=== PATIENT | male | born 1990 | race African-American/Black ===

== ENCOUNTER 2018-10-30 02:55 | Inpatient (IN) | payer OTHER ==
[2018-10-30] MEDS ORDERED: Morphine 4 MG/ML VIAL ONE (03:51)
[2018-10-30] MEDS ORDERED: Ketorolac Tromethamine 30 MG/ML VIAL ONE (03:51)
[2018-10-30 04:03] LABS: ALT (SGPT) 20 U/L (8-55); AST (SGOT) 10 U/L (5-34); Albumin 3.8 g/dL (3.5-5.0); Alkaline Phosphatase 61 U/L (40-150); Anion Gap 13 mmol/L (10-20); BUN (Urea Nitrogen) 11 mg/dL (8.9-20.6); Bilirubin, Total 1.5 mg/dL (0.2-1.2); CRP (Inflammatory) 27.03 mg/dL (= or < 0.5); Calc. Creatinine Clearance 0 mL/min (70-130); Calcium 9.2 mg/dL (7.8-10.44); Carbon Dioxide 26 mmol/L (22-29); Chloride 103 mmol/L (98-107); Estimated GFR-MDRD Greater than 90; Globulin 3.5 g/dL (2.4-3.5); Glucose 112 mg/dL (70-105); Potassium 3.7 mmol/L (3.5-5.1); Protein, Total 7.3 g/dL (6.0-8.3); Sodium 138 mmol/L (136-145)
[2018-10-30 04:13] LABS: Band 15 % (5-11); Hemoglobin 14.4 g/dL (14.0-18.0); Lymphocytes 8 % (21-51); MDiff Complete? YES; Mean Corpuscular HGB CONC 34.7 g/dL (32.0-36.0); Mean Corpuscular Hemoglobin 30.6 pg (27.0-31.0); Mean Corpuscular Volume 88.1 fL (78.0-98.0); Mean Platelet Volume 6.7 fL (7.4-10.4); Monocytes 12 % (0-10); Neutrophil 65 % (42-75); Platelet Count 282 thou/uL (130-400); RBC Distribution Width 11.2 % (11.5-14.5); White Blood Cell (WBC) Count 13.4 thou/uL (4.8-10.8)
[2018-10-30] MEDS ORDERED: Cefepime 2 GM in Sodium Chloride 0.9% 100 ML IVPB SCH (04:15)
[2018-10-30 05:28] LABS: Bilirubin Small (Negative); Blood, Urine Negative (Negative); Clarity CLEAR (Clear); Glucose, Urine (Dipstick) Negative (Negative); Leukocyte Negative (Negative); Nitrite Negative (Negative); Protein, Urine (Dipstick) Trace mg/dL (Neg-Trace)
[2018-10-30 05:32] LABS: Specific Gravity, Urine 1.053 (1.002-1.036)
[2018-10-30 06:14] VITALS: BMI 31.1
[2018-10-30] MEDS ORDERED: Ondansetron ODT 4 MG TAB PO PRN ×2 (07:08→07:55)
[2018-10-30] MEDS ORDERED: Ondansetron PF 4 MG/2 ML Vial IVP PRN ×2 (07:08→07:55)
[2018-10-30] MEDS ORDERED: Morphine 4 MG/ML VIAL SLOW IVP PRN (07:08)
[2018-10-30] MEDS ORDERED: HYDROcodone/Acetaminophen 5/325 mg Tablet PO PRN ×2 (07:09)
[2018-10-30] MEDS ORDERED: Sodium Chloride 0.45% 1,000 ML IV SCH (07:15)
[2018-10-30] MEDS ORDERED: Loratadine 10 MG TAB PO PRN (07:55)
[2018-10-30] MEDS ORDERED: Sodium Chloride 0.65% Nasal 44 ML BOT EA NARE PRN (07:55)
[2018-10-30] MEDS ORDERED: Bisacodyl 10 MG SUPP PR PRN (07:55)
[2018-10-30] MEDS ORDERED: Cepastat Lozenges 1 LOZ PO PRN (07:55)
[2018-10-30] MEDS ORDERED: Zolpidem Tartrate 5 MG TAB PO PRN (07:55)
[2018-10-30] MEDS ORDERED: Diabetic Tussin 200 MG/10 ML UDCUP PO PRN (07:55)
[2018-10-30] MEDS ORDERED: Calcium Carbonate 500 MG ChewTAB PO PRN (07:55)
[2018-10-30] MEDS ORDERED: hydrALAZINE 20 MG/ML VIAL SLOW IVP PRN (07:55)
[2018-10-30] MEDS ORDERED: Loperamide HCl 2 MG CAP PO PRN (07:55)
[2018-10-30] MEDS ORDERED: Artificial Tears 18 DROP/0.9 ML EA EYE PRN (07:55)
[2018-10-30] MEDS ORDERED: Eucerin (Mineral Oil/Petrolatum,White) 30 gm Jar TOP PRN (07:55)
[2018-10-30] MEDS ORDERED: Guaifenesin DM 100-10/5 ML UDCUP PO PRN (07:55)
[2018-10-30] MEDS: Sodium Chloride 0.9% 1,000 ML IV SCH ×2 (09:12→17:15)
[2018-10-30] MEDS: Cefepime 2 GM in Sodium Chloride 0.9% 100 ML IVPB SCH ×2 (09:59→20:26)
[2018-10-30] MEDS: Enoxaparin Sodium 40 MG/0.4 ML SYRINGE SC SCH (10:01)
[2018-10-30] MEDS: Famotidine 20 MG TAB PO SCH ×2 (10:01→20:26)
--- NOTE | 2018-10-30 11:41 | HP ---
PRIMARY CARE PHYSICIAN: [facility] Call admission. REASON FOR ADMISSION: Scrotal cellulitis. HISTORY OF PRESENT ILLNESS: A 28-year-old -[place] male with no significant medical history, who is [place], who was initially evaluated at [facility] for scrotal swelling and pain. The patient reports that for last 1 week he is experiencing increasing scrotal erythema, swelling, and tenderness. He was also having on and off fever at senior care. He was given oral antibiotic therapy without any improvement. The patient was feeling that his scrotal swelling and tenderness was getting worse. His scrotal was getting more tender when he was resting with keeping elevated his pain was relatively less. He denies any trauma. He denies any nausea, vomiting, or diarrhea. He denies any abdominal pain. He denies any UTI symptoms. REVIEW OF SYSTEMS: CONSTITUTIONAL: Negative for weight loss or gain, ability to conduct usual activities. SKIN: Negative for rash, itching. EYES: Negative for double vision, pain. ENT/MOUTH: Negative for nose bleeding, neck stiffness, pain, tenderness. CARDIOVASCULAR: Negative for palpitations, dyspnea on exertion, orthopnea. RESPIRATORY: Negative for shortness of breath, wheezing, cough, hemoptysis, fever or night sweats. GASTROINTESTINAL: Negative for poor appetite, abdominal pain, heartburn, nausea, vomiting, constipation, or diarrhea. GENITOURINARY: Negative for urgency, frequency, dysuria, nocturia. MUSCULOSKELETAL: Negative for pain, swelling. NEUROLOGIC/PSYCHIATRIC: Negative for anxiety, depression. ALLERGY/IMMUNOLOGIC: Negative for skin rash, bleeding tendency. See my HPI for pertinent positives and negatives. All other review of systems reviewed and negative except as mentioned in HPI. ALLERGIES: DEMEROL AND PENICILLIN. CURRENT HOME MEDICATIONS: The patient is not taking any prescribed or non-prescribed medication. PAST MEDICAL HISTORY: Reviewed and negative. PAST SURGICAL HISTORY: Reviewed and negative. PAST PSYCHIATRIC HISTORY: Reviewed and negative. SOCIAL HISTORY: The patient is [place]. No history of tobacco, alcohol, or illicit drug abuse. FAMILY HISTORY: No family history of premature coronary artery disease, stroke, or cancer. EMERGENCY ROOM COURSE: The patient is given cefepime, morphine 4 mg, and Toradol 30 mg. PHYSICAL EXAMINATION: VITAL SIGNS: On arrival, blood pressure 132/80, pulse 101, respiratory rate 18, temperature 100, and saturation 97% on room air. Weight 110.2 kg. GENERAL: The patient is currently alert and awake. No obvious acute distress. HEENT: Head; normocephalic and atraumatic. Eyes; pupils are round and reactive to light. Extraocular muscle intact. ENT, oropharynx within normal limits. Moist mucous membranes. No oral lesion. No pharyngeal erythema. No exudate. NECK: Supple. No JVD. No thyromegaly. No carotid bruit. No jugular venous distention. LUNGS: Clear to auscultation without any rhonchi or rales. CARDIAC: S1 and S2 regular. No murmur. No gallop. No rub. ABDOMEN: Soft. Bowel sounds present. Nontender. Nondistended. No organomegaly. No mass. No suprapubic tenderness. BACK: Unremarkable. No CVA tenderness. EXTREMITIES: Upper extremities; passive movement of all joints are normal. Lower extremity, no edema, good distal pulsation. SKIN: Other than scrotal cellulitis, the patient does not have any rash. PSYCHIATRIC: Normal affect. GENITALIA: The patient's testicular is swollen, especially status scrotal cellulitis with significant tenderness. No gas. No crepitus. No inguinal lymph node palpable. NEUROLOGIC: Nonfocal examination. SIGNIFICANT LABORATORY DATA: CBC; WBC 13.4, hemoglobin 14.4, platelet 282 with bandemia. BMP; sodium 138, potassium 3.7, chloride 103, carbon dioxide 26, anion gap 13, BUN 11, creatinine 0.85, glucose 112, and calcium 9.2. LFT; bilirubin 1.5, AST 10, ALT 20, alkaline phosphatase 61, albumin 3.8. CRP is 27.03. Lactic acid 0.7. Urinalysis unremarkable. ASSESSMENT: 1. Sepsis due to scrotal cellulitis. 2. Cellulitis of scrotum, failure of outpatient therapy. 3. Obesity with BMI 31. PLAN: Admission to medical floor. Urology consultation. Start broad-spectrum antibiotic therapy with cefepime 2 g IV q.12 hourly and vancomycin as per pharmacy adjusted dose. Continue IV fluid, pain control with morphine p.r.n. basis and/or ibuprofen p.r.n. basis. Follow up on culture result. DVT prophylaxis with Lovenox 40 mg subcu daily, GI prophylaxis with Pepcid 20 mg p.o. b.i.d. CODE STATUS: The patient is full code. The patient does not have any surrogate decision maker. DISPOSITION PLAN: Based on clinical course, we are expecting the patient to stay in hospital for more than 2 midnights. Plan of care discussed with the patient in detail. Job ID: [id number]
[2018-10-30] MEDS: HYDROcodone/Acetaminophen 5/325 mg Tablet PO PRN ×2 (16:04→20:26)
--- NOTE | 2018-10-30 16:11 | ULT ---
ULTRASOUND TESTICULAR: Date: 10/30/18 HISTORY: Left-sided scrotal swelling and pain. COMPARISON: None. TECHNIQUE: Real-time Alonzo scale with color Doppler and spectral analysis of the testicles was performed. FINDINGS: Right testicle measures 4.6 x 3.4 x 2.4 cm. Left testicle measures 4.6 x 3.1 x 2.6 cm. The vascular f low of the testicles is normal and symmetric. No testicular mass. The left epididymis is hyperemic. There is a complex collection in the right hemiscrotum. IMPRESSION: 1. Concern for possible phlegmonous material or abscess within the right hemiscrotal soft tissues. 2. Hyperemia of the left epididymis suggesting epididymitis. 3. Normal vascularity to both testicles. POS: BILL
[2018-10-30] MEDS: Morphine 4 MG/ML VIAL SLOW IVP PRN ×2 (17:08→22:06)
--- NOTE | 2018-10-30 18:39 | CON ---
DATE OF CONSULTATION: 10/30/2018 HISTORY OF PRESENT ILLNESS: This is a 28-year-old male, whom I was asked to see today by the hospitalist group because of scrotal cellulitis. Apparently, this started 3 or 4 days ago. He has been incarcerated. He had no trauma to it that he knows. He has never had it before. He has had swelling and pain on the right side. It got worse. He may have had a fever yesterday. It sounds like he had an ultrasound done at [place] yesterday, but we do not have any records of that. He is on vancomycin and cefepime currently. His white count when he came in was slightly elevated at 13.4. His creatinine was normal. Urinalysis was negative. He has not been having any dysuria, discharge, or difficulty with urination. Vital signs; since he has been here, he has been afebrile with stable vital signs. He has no significant medical or surgical history. He has some allergies to penicillin and Demerol. His exam; penis is without lesions. The scrotum on the right side is enlarged, tender. There is some erythema, although not as much as was described. This may already be improving. He has some area of scrotal wall on the right side that is somewhat shiny and feels to be fluctuant underneath it, so he probably does have a scrotal wall abscess, too tender to really tell about the testicle. IMPRESSION: Scrotal cellulitis with probably a scrotal wall abscess. We will plan on getting a scrotal ultrasound done today. He does not appear toxic today. He has just started antibiotics. We will get those going. Probably, will need to be drained. Most likely making him n.p.o. after midnight and draining this tomorrow morning in the OR unless he changes today or unless the ultrasound shows something more ominous. Job ID: [id number]
[2018-10-31] MEDS: HYDROcodone/Acetaminophen 5/325 mg Tablet PO PRN ×4 (00:25→21:01)
[2018-10-31] MEDS: Morphine 4 MG/ML VIAL SLOW IVP PRN ×5 (01:34→15:48)
[2018-10-31] MEDS: Sodium Chloride 0.9% 1,000 ML IV SCH ×3 (05:35→21:02)
[2018-10-31] MEDS ORDERED: Promethazine HCl 25 MG/ML VIAL SLOW IVP PRN (07:46)
[2018-10-31] MEDS ORDERED: Promethazine HCl 25 MG/ML VIAL IM PRN (07:46)
[2018-10-31] MEDS ORDERED: Ondansetron HCl/PF 4 MG/2 ML Vial IVP PRN (07:46)
[2018-10-31] MEDS ORDERED: Fentanyl 100 MCG/2 ML VIAL ONE ×3 (08:36→10:16)
[2018-10-31] MEDS ORDERED: Famotidine/PF 20 mg/2ml Vial ONE (09:01)
[2018-10-31] MEDS ORDERED: PROPOFOL 200 MG/20 ML VIAL ONE (09:25)
[2018-10-31] MEDS ORDERED: Ketorolac Tromethamine 30 MG/ML VIAL ONE (09:25)
[2018-10-31] MEDS ORDERED: Lidocaine 1% PF 5 ML VIAL ONE (09:25)
[2018-10-31] MEDS ORDERED: Ondansetron PF 4 MG/2 ML Vial ONE (09:25)
[2018-10-31] MEDS ORDERED: Dexamethasone 20 MG/5 ML VIAL ONE (09:25)
[2018-10-31] MEDS: Cefepime 2 GM in Sodium Chloride 0.9% 100 ML IVPB SCH ×2 (10:01→21:00)
[2018-10-31] MEDS: Enoxaparin Sodium 40 MG/0.4 ML SYRINGE SC SCH ×2 (10:02→11:29)
[2018-10-31] MEDS: Famotidine 20 MG TAB PO SCH ×3 (10:02→21:00)
--- NOTE | 2018-10-31 11:12 | PDOC.PN ---
- Subjective Encounter Start Date: 10/31/18 Encounter Start Time: 12:00 -: old records requested/rev - Objective Resuscitation Status - Order Detail: 10/30/18 07:52 Resuscitation Status Routine Resuscitation Status: FULL: Full Resuscitation MAR Reviewed: Yes Vital Signs & Weight: Vital Signs (12 hours) Temp Pulse Resp BP Pulse Ox 10/31/18 08:00 99.9 F H 88 16 136/81 95 10/30/18 23:43 98.8 F 74 24 H 116/69 98 Weight Weight 243 lb I&O: 10/30/18 10/31/18 11/01/18 06:59 06:59 06:59 Intake Total 1850 774 Output Total 550 250 Balance 1300 524 Result Diagrams: 10/31/18 11:48 10/31/18 09:36 Phys Exam - Physical Examination Constitutional: NAD HEENT: PERRLA, moist MMs, sclera anicteric Neck: no JVD, supple Respiratory: no wheezing, no rales, no rhonchi Cardiovascular: RRR, no significant murmur, no rub Gastrointestinal: soft, non-tender, no distention, positive bowel sounds Musculoskeletal: no edema, pulses present Neurological: non-focal, normal sensation Lymphatic: no nodes Psychiatric: normal affect, A&O x 3 Skin: no rash, normal turgor Dx/Plan (1) Acute epididymitis Code(s): N45.1 - EPIDIDYMITIS Status: Acute (2) Cellulitis of scrotum Code(s): N49.2 - INFLAMMATORY DISORDERS OF SCROTUM Status: Acute (3) Sepsis Code(s): A41.9 - SEPSIS, UNSPECIFIED ORGANISM Status: Acute (4) Obesity (BMI 30.0-34.9) Code(s): E66.9 - OBESITY, UNSPECIFIED Status: Chronic - Plan cont current plan of care, continue antibiotics * continue cefepime and vancomycin * urology recommendation appreciated * today plan for I & D * medication reviewed as below * symptomatic treatment * wound care after surgery * pain control. * continue IVF Review of Systems - Review of Systems ENT: negative: Ear Pain, Ear Discharge, Nose Pain, Nose Discharge, Nose Congestion, Mouth Pain, Mouth Swelling, Throat Pain, Throat Swelling, Other Respiratory: negative: Cough, Dry, Shortness of Breath, Hemoptysis, SOB with Excertion, Pleuritic Pain, Sputum, Wheezing Cardiovascular: negative: chest pain, palpitations, orthopnea, paroxysmal nocturnal dyspnea, edema, light headedness, other Gastrointestinal: negative: Nausea, Vomiting, Abdominal Pain, Diarrhea, Constipation, Melena, Hematochezia, Other Genitourinary: negative: Dysuria, Frequency, Incontinence, Hematuria, Retention , Other Musculoskeletal: negative: Neck Pain, Shoulder Pain, Arm Pain, Back Pain, Hand Pain, Leg Pain, Foot Pain, Other Skin: negative: Rash, Lesions, Amos, Bruising, Other - Medications/Allergies Allergies/Adverse Reactions: Allergies Allergy/AdvReac Type Severity Reaction Status Date / Time meperidine [From Demerol] Allergy Verified 10/30/18 04:02 Penicillins Allergy Verified 10/30/18 06:08 Medications: Current Medications Acetaminophen (Tylenol) 650 mg PO Q4H PRN PRN Reason: Headache/Fever/Mild Pain (1-3) Hydrocodone Bitart/Acetaminophen ([place] 5/325) 1 tab PO Q4H PRN PRN Reason: Moderate Pain (4-6) Last Admin: 10/31/18 00:25 Dose: 1 tab Artificial Tears (Tears Naturale) 2 drop EA EYE PRN PRN PRN Reason: Dry Eyes Bisacodyl (Dulcolax) 10 mg [place] DAILYPRN PRN PRN Reason: Constipation Calcium Carbonate (Tums) 1,000 mg PO Q4H PRN PRN Reason: Heartburn or Indigestion Enoxaparin Sodium (Lovenox) 40 mg SC 0900 [facility] Last Admin: 10/31/18 10:02 Dose: Not Given Famotidine (Pepcid) 20 mg PO BID [facility] Last Admin: 10/31/18 10:02 Dose: Not Given Guaifenesin (Robitussin Sf) 200 mg PO Q4H PRN PRN Reason: Cough Guaifenesin/Dextromethorphan (Robitussin Dm) 15 ml PO Q4H PRN PRN Reason: Cough Hydralazine HCl (Apresoline) 10 mg SLOW IVP Q4H PRN PRN Reason: SBP > 180 and HR < 70 Cefepime HCl 2 gm/ Sodium (Chloride) 100 mls @ 200 mls/hr IVPB Q12HR [facility] Last Admin: 10/31/18 10:01 Dose: Not Given Sodium Chloride (Normal Saline 0.9%) 1,000 mls @ 100 mls/hr IV .Q10H [facility] Last Admin: 10/31/18 05:35 Dose: Not Given Vancomycin HCl 2 gm/ Sodium (Chloride) 500 mls @ 250 mls/hr IVPB Q8H [facility] Last Admin: 10/31/18 10:03 Dose: Not Given Ibuprofen (Motrin) 400 mg PO Q4H PRN PRN Reason: Fever > 101 Loperamide HCl (Imodium) 2 mg PO PRN PRN PRN Reason: Diarrhea/Loose Stools Loratadine (Claritin) 10 mg PO DAILYPRN PRN PRN Reason: Sinus Symptoms Mineral Oil/White Petrolatum (Eucerin Cream) 0 gm TOP BIDPRN PRN PRN Reason: Dry Skin Miscellaneous Medication (Pharmacy To Dose) 1 each IVPB ASDIR [facility] Morphine Sulfate (Morphine) 2 mg SLOW IVP Q2H PRN PRN Reason: Pain Last Admin: 10/31/18 11:00 Dose: 2 mg Ondansetron HCl (Zofran Odt) 4 mg PO Q6H PRN PRN Reason: Nausea/Vomiting Ondansetron HCl (Zofran) 4 mg IVP Q6H PRN PRN Reason: Nausea/Vomiting Senna/Docusate Sodium (Senokot S) 2 tab PO BID PRN PRN Reason: Constipation Sodium Chloride ([place] Nasal [place] 0.65%) 0 ml EA NARE QIDPRN PRN PRN Reason: Nasal Congestion Sodium Chloride (Flush - Normal Saline) 10 ml IVF Q12HR [facility] Last Admin: 10/31/18 10:03 Dose: Not Given Sodium Chloride (Flush - Normal Saline) 10 ml IVF PRN PRN PRN Reason: Saline Flush Throat Lozenges (Cepastat Lozenges) 1 zion PO Q2H PRN PRN Reason: Sore Throat Zolpidem Tartrate (Ambien) 5 mg PO HSPRN PRN PRN Reason: Insomnia
[2018-10-31] MEDS: Ibuprofen 200 MG TAB PO PRN ×3 (11:28→21:01)
[2018-10-31 11:50] LABS: Vancomycin, Trough 18.9 ug/mL
[2018-10-31 11:56] LABS: #Eosinphils 0.3 thou/uL (0.0-0.7); #Monocytes 0.5 thou/uL (0.11-0.59); %Basophils 0.1 % (0.0-1.0); %Lymphocytes 7.3 % (21.0-51.0); %Monocytes 3.3 % (0.0-10.0); %Neutrophils 87.3 % (42.0-75.0); Hemoglobin 13.5 g/dL (14.0-18.0); Mean Corpuscular HGB CONC 34.1 g/dL (32.0-36.0); Mean Corpuscular Hemoglobin 30.1 pg (27.0-31.0); Mean Corpuscular Volume 88.4 fL (78.0-98.0); Mean Platelet Volume 6.5 fL (7.4-10.4); Platelet Count 309 thou/uL (130-400); RBC Distribution Width 10.9 % (11.5-14.5); Red Blood Cell (RBC) Count 4.49 mill/uL (4.70-6.10); White Blood Cell (WBC) Count 13.8 thou/uL (4.8-10.8)
[2018-10-31 12:14] LABS: Anion Gap 12 mmol/L (10-20); BUN (Urea Nitrogen) 8 mg/dL (8.9-20.6); Calc. Creatinine Clearance 214 mL/min (70-130); Calcium 8.6 mg/dL (7.8-10.44); Carbon Dioxide 25 mmol/L (22-29); Chloride 105 mmol/L (98-107); Estimated GFR-MDRD Greater than 90; Glucose 108 mg/dL (70-105); Potassium 3.8 mmol/L (3.5-5.1); Sodium 138 mmol/L (136-145)
--- NOTE | 2018-10-31 17:05 | OP ---
DATE OF PROCEDURE: 10/31/2018 PREOPERATIVE DIAGNOSIS: Right-sided scrotal abscess. POSTOPERATIVE DIAGNOSIS: Right-sided scrotal abscess. PROCEDURE PERFORMED: Incision and drainage of scrotal abscess. ANESTHETIC: General. ESTIMATED BLOOD LOSS: Less than 50 mL. FINDINGS: He had a very large abscess cavity on the right scrotal wall, probably 60 mL of nonfoul smelling purulent and bloody fluid obtained, it extended up toward the right inguinal canal, but did not involve it. There was not any obvious evidence of devascularized scrotal wall. There is nothing to suggest necrotizing fasciitis. CULTURES: Both anaerobic and aerobic were sent. DESCRIPTION OF PROCEDURE: After obtaining written and verbal consent from the patient, he was taken to the operating suite. He was placed in the supine position on the operating room table. He was given a general anesthetic and oral intubation. PlexiPulses were placed on his lower extremities and turned on. The right-sided scrotum was shaved and sterilely prepped and draped. An incision was made over the area of fluctuance with a skin knife and was immediately draining this fluid that we cultured. We then extended the incision along the length of the abscess cavity probably 8 to 10 cm long and broke up some loculations. It was not deep into the scrotum or up into the inguinal canal. We then irrigated out with sterile water and then obtained hemostasis with electrocautery unit and then re-irrigated and then placed the damp-to-dry dressing of Kerlix and wet panties. The patient tolerated the procedure well. He was awakened, extubated, and taken by stretcher to recovery room. Job ID: [id number]
[2018-11-01] MEDS: Ibuprofen 200 MG TAB PO PRN ×4 (00:50→23:41)
[2018-11-01] MEDS: HYDROcodone/Acetaminophen 5/325 mg Tablet PO PRN ×3 (00:50→14:19)
[2018-11-01 07:11] LABS: #Eosinphils 0.1 thou/uL (0.0-0.7); #Lymphocytes 1.9 thou/uL (1.20-3.40); #Monocytes 0.8 thou/uL (0.11-0.59); %Basophils 0.2 % (0.0-1.0); %Eosinophils 0.9 % (0.0-10.0); %Lymphocytes 12.8 % (21.0-51.0); %Monocytes 5.5 % (0.0-10.0); %Neutrophils 80.5 % (42.0-75.0); Hemoglobin 12.7 g/dL (14.0-18.0); Mean Corpuscular Hemoglobin 29.9 pg (27.0-31.0); Mean Corpuscular Volume 87.9 fL (78.0-98.0); Mean Platelet Volume 7.1 fL (7.4-10.4); Platelet Count 349 thou/uL (130-400); RBC Distribution Width 10.9 % (11.5-14.5); Red Blood Cell (RBC) Count 4.25 mill/uL (4.70-6.10); White Blood Cell (WBC) Count 14.9 thou/uL (4.8-10.8)
[2018-11-01 07:32] LABS: Anion Gap 11 mmol/L (10-20); BUN (Urea Nitrogen) 5 mg/dL (8.9-20.6); CRP (Inflammatory) 12.46 mg/dL (= or < 0.5); Calc. Creatinine Clearance 245 mL/min (70-130); Calcium 8.8 mg/dL (7.8-10.44); Carbon Dioxide 25 mmol/L (22-29); Chloride 106 mmol/L (98-107); Estimated GFR-MDRD Greater than 90; Glucose 147 mg/dL (70-105); Potassium 3.7 mmol/L (3.5-5.1); Sodium 138 mmol/L (136-145)
[2018-11-01] MEDS: Famotidine 20 MG TAB PO SCH ×2 (07:56→20:21)
[2018-11-01] MEDS: Enoxaparin Sodium 40 MG/0.4 ML SYRINGE SC SCH (07:56)
[2018-11-01] MEDS: Cefepime 2 GM in Sodium Chloride 0.9% 100 ML IVPB SCH (08:21)
[2018-11-01] MEDS: Morphine 4 MG/ML VIAL SLOW IVP PRN ×2 (09:16→23:41)
[2018-11-01 09:44] LABS: Vancomycin, Trough 19.9 ug/mL
[2018-11-01] MEDS: Sodium Chloride 0.9% 1,000 ML IV SCH ×2 (11:58→23:43)
--- NOTE | 2018-11-01 13:20 | PDOC.PN ---
- Subjective Encounter Start Date: 11/01/18 Encounter Start Time: 08:00 Patient seen and examined. No new complaints. No overnight events no fever, his pain well controlled - Objective Resuscitation Status - Order Detail: 10/30/18 07:52 Resuscitation Status Routine Resuscitation Status: FULL: Full Resuscitation MAR Reviewed: Yes Vital Signs & Weight: Vital Signs (12 hours) Temp Pulse Resp BP Pulse Ox 11/01/18 11:56 97.5 F L 77 18 123/74 95 11/01/18 08:00 97.7 F 55 L 16 133/83 97 11/01/18 04:00 97.8 F 56 L 16 130/83 95 Weight Weight 243 lb I&O: 10/31/18 11/01/18 11/02/18 06:59 06:59 06:59 Intake Total 1850 6332 Output Total 550 2950 Balance 1300 3382 Result Diagrams: 11/01/18 06:25 11/01/18 06:25 Phys Exam - Physical Examination Constitutional: NAD HEENT: PERRLA, moist MMs, sclera anicteric Neck: no JVD, supple Respiratory: no wheezing, no rales, no rhonchi Cardiovascular: RRR, no significant murmur, no rub Gastrointestinal: soft, non-tender, no distention, positive bowel sounds Musculoskeletal: no edema, pulses present Neurological: non-focal, normal sensation, moves all 4 limbs scrotal wound with dressing Lymphatic: no nodes Psychiatric: normal affect, A&O x 3 Skin: no rash, normal turgor Dx/Plan (1) Acute epididymitis Code(s): N45.1 - EPIDIDYMITIS Status: Acute (2) Cellulitis of scrotum Code(s): N49.2 - INFLAMMATORY DISORDERS OF SCROTUM Status: Acute (3) Sepsis Code(s): A41.9 - SEPSIS, UNSPECIFIED ORGANISM Status: Acute (4) Obesity (BMI 30.0-34.9) Code(s): E66.9 - OBESITY, UNSPECIFIED Status: Chronic - Plan cont current plan of care, continue antibiotics * follow up on culture result, as now grew staph aureus * continue vancomycin, DC cefepime * medication reviewed as below * symptomatic treatment * pain controlled * wound care. Review of Systems - Review of Systems ENT: negative: Ear Pain, Ear Discharge, Nose Pain, Nose Discharge, Nose Congestion, Mouth Pain, Mouth Swelling, Throat Pain, Throat Swelling, Other Respiratory: negative: Cough, Dry, Shortness of Breath, Hemoptysis, SOB with Excertion, Pleuritic Pain, Sputum, Wheezing Cardiovascular: negative: chest pain, palpitations, orthopnea, paroxysmal nocturnal dyspnea, edema, light headedness, other Gastrointestinal: negative: Nausea, Vomiting, Abdominal Pain, Diarrhea, Constipation, Melena, Hematochezia, Other Genitourinary: negative: Dysuria, Frequency, Incontinence, Hematuria, Retention , Other Musculoskeletal: negative: Neck Pain, Shoulder Pain, Arm Pain, Back Pain, Hand Pain, Leg Pain, Foot Pain, Other Skin: negative: Rash, Lesions, Amos, Bruising, Other - Medications/Allergies Allergies/Adverse Reactions: Allergies Allergy/AdvReac Type Severity Reaction Status Date / Time meperidine [From Demerol] Allergy Verified 10/30/18 04:02 Penicillins Allergy Verified 10/30/18 06:08 Medications: Current Medications Acetaminophen (Tylenol) 650 mg PO Q4H PRN PRN Reason: Headache/Fever/Mild Pain (1-3) Hydrocodone Bitart/Acetaminophen ([place] 5/325) 1 tab PO Q4H PRN PRN Reason: Moderate Pain (4-6) Last Admin: 11/01/18 07:54 Dose: 1 tab Artificial Tears (Tears Naturale) 2 drop EA EYE PRN PRN PRN Reason: Dry Eyes Bisacodyl (Dulcolax) 10 mg IN DAILYPRN PRN PRN Reason: Constipation Calcium Carbonate (Tums) 1,000 mg PO Q4H PRN PRN Reason: Heartburn or Indigestion Enoxaparin Sodium (Lovenox) 40 mg SC 0900 [facility] Last Admin: 11/01/18 07:56 Dose: 40 mg Famotidine (Pepcid) 20 mg PO BID [facility] Last Admin: 11/01/18 07:56 Dose: 20 mg Guaifenesin (Robitussin Sf) 200 mg PO Q4H PRN PRN Reason: Cough Guaifenesin/Dextromethorphan (Robitussin Dm) 15 ml PO Q4H PRN PRN Reason: Cough Hydralazine HCl (Apresoline) 10 mg SLOW IVP Q4H PRN PRN Reason: SBP > 180 and HR < 70 Sodium Chloride (Normal Saline 0.9%) 1,000 mls @ 100 mls/hr IV .Q10H [facility] Last Admin: 11/01/18 11:58 Dose: Not Given Vancomycin HCl 2 gm/ Sodium (Chloride) 500 mls @ 250 mls/hr IVPB Q8H [facility] Last Admin: 11/01/18 08:21 Dose: 500 mls Ibuprofen (Motrin) 400 mg PO Q4H PRN PRN Reason: Fever > 101 Last Admin: 11/01/18 07:56 Dose: 400 mg Loperamide HCl (Imodium) 2 mg PO PRN PRN PRN Reason: Diarrhea/Loose Stools Loratadine (Claritin) 10 mg PO DAILYPRN PRN PRN Reason: Sinus Symptoms Mineral Oil/White Petrolatum (Eucerin Cream) 0 gm TOP BIDPRN PRN PRN Reason: Dry Skin Miscellaneous Medication (Pharmacy To Dose) 1 each IVPB ASDIR [facility] Morphine Sulfate (Morphine) 2 mg SLOW IVP Q2H PRN PRN Reason: Pain Last Admin: 11/01/18 09:16 Dose: 2 mg Ondansetron HCl (Zofran Odt) 4 mg PO Q6H PRN PRN Reason: Nausea/Vomiting Ondansetron HCl (Zofran) 4 mg IVP Q6H PRN PRN Reason: Nausea/Vomiting Senna/Docusate Sodium (Senokot S) 2 tab PO BID PRN PRN Reason: Constipation Sodium Chloride ([place] Nasal [place] 0.65%) 0 ml EA NARE QIDPRN PRN PRN Reason: Nasal Congestion Sodium Chloride (Flush - Normal Saline) 10 ml IVF Q12HR [facility] Last Admin: 11/01/18 11:57 Dose: Not Given Sodium Chloride (Flush - Normal Saline) 10 ml IVF PRN PRN PRN Reason: Saline Flush Throat Lozenges (Cepastat Lozenges) 1 zion PO Q2H PRN PRN Reason: Sore Throat Zolpidem Tartrate (Ambien) 5 mg PO HSPRN PRN PRN Reason: Insomnia
[2018-11-01] MEDS: Acetaminophen 325 MG TAB PO PRN (17:33)
[2018-11-02] MEDS: HYDROcodone/Acetaminophen 5/325 mg Tablet PO PRN ×5 (00:22→20:32)
[2018-11-02] MEDS: Acetaminophen 325 MG TAB PO PRN ×2 (03:31→17:15)
[2018-11-02] MEDS: Ibuprofen 200 MG TAB PO PRN ×2 (05:13→17:15)
[2018-11-02] MEDS: Sodium Chloride 0.9% 1,000 ML IV SCH (06:00)
[2018-11-02 08:20] LABS: #Eosinphils 0.6 thou/uL (0.0-0.7); #Lymphocytes 2.6 thou/uL (1.20-3.40); #Monocytes 0.6 thou/uL (0.11-0.59); #Neutrophils 6.2 thou/uL (1.40-6.50); %Basophils 0.3 % (0.0-1.0); %Eosinophils 6.1 % (0.0-10.0); %Lymphocytes 25.6 % (21.0-51.0); %Monocytes 6.1 % (0.0-10.0); %Neutrophils 61.9 % (42.0-75.0); Hemoglobin 12.8 g/dL (14.0-18.0); Mean Corpuscular HGB CONC 33.6 g/dL (32.0-36.0); Mean Corpuscular Hemoglobin 29.7 pg (27.0-31.0); Mean Corpuscular Volume 88.5 fL (78.0-98.0); Mean Platelet Volume 6.8 fL (7.4-10.4); Platelet Count 354 thou/uL (130-400); RBC Distribution Width 11.1 % (11.5-14.5); White Blood Cell (WBC) Count 10.1 thou/uL (4.8-10.8)
[2018-11-02 08:38] LABS: Anion Gap 12 mmol/L (10-20); BUN (Urea Nitrogen) 5 mg/dL (8.9-20.6); CRP (Inflammatory) 6.09 mg/dL (= or < 0.5); Calc. Creatinine Clearance 235 mL/min (70-130); Calcium 8.9 mg/dL (7.8-10.44); Carbon Dioxide 26 mmol/L (22-29); Chloride 107 mmol/L (98-107); Estimated GFR-MDRD Greater than 90; Glucose 85 mg/dL (70-105); Potassium 3.8 mmol/L (3.5-5.1); Sodium 141 mmol/L (136-145)
[2018-11-02] MEDS: Famotidine 20 MG TAB PO SCH ×2 (09:02→20:32)
[2018-11-02] MEDS: Enoxaparin Sodium 40 MG/0.4 ML SYRINGE SC SCH (09:02)
[2018-11-02] MEDS: Morphine 4 MG/ML VIAL SLOW IVP PRN (09:54)
--- NOTE | 2018-11-02 13:32 | PDOC.PN ---
- Subjective Encounter Start Date: 11/02/18 Encounter Start Time: 08:00 Patient seen and examined. No new complaints. No overnight events - Objective Resuscitation Status - Order Detail: 10/30/18 07:52 Resuscitation Status Routine Resuscitation Status: FULL: Full Resuscitation MAR Reviewed: Yes Vital Signs & Weight: Vital Signs (12 hours) Temp Pulse Resp BP Pulse Ox 11/02/18 11:20 97.8 F 52 L 12 138/78 95 11/02/18 08:00 97 11/02/18 07:15 97.6 F 53 L 12 159/84 H 97 11/02/18 03:48 97.7 F 56 L 16 125/75 96 Weight Admit Weight 243 lb Weight 243 lb I&O: 11/01/18 11/02/18 11/03/18 06:59 06:59 06:59 Intake Total 6332 2650 Output Total 2950 Balance 3382 2650 Result Diagrams: 11/02/18 07:49 11/02/18 07:49 Phys Exam - Physical Examination Constitutional: NAD HEENT: PERRLA, moist MMs, sclera anicteric Neck: no JVD, supple Respiratory: no wheezing, no rales, no rhonchi Cardiovascular: RRR, no significant murmur, no rub Gastrointestinal: soft, non-tender, no distention, positive bowel sounds Musculoskeletal: no edema, pulses present scotal wound with dressing Neurological: non-focal, normal sensation, moves all 4 limbs Psychiatric: normal affect, A&O x 3 Skin: no rash, normal turgor Dx/Plan (1) Acute epididymitis Code(s): N45.1 - EPIDIDYMITIS Status: Acute (2) Cellulitis of scrotum Code(s): N49.2 - INFLAMMATORY DISORDERS OF SCROTUM Status: Acute (3) Sepsis Code(s): A41.9 - SEPSIS, UNSPECIFIED ORGANISM Status: Acute (4) Obesity (BMI 30.0-34.9) Code(s): E66.9 - OBESITY, UNSPECIFIED Status: Chronic - Plan cont current plan of care, continue antibiotics * continue wound care * continue vancomycin * on discharge will consider oral doxycycline * medication reviewed as below * symptomatic treatment. Review of Systems - Review of Systems ENT: negative: Ear Pain, Ear Discharge, Nose Pain, Nose Discharge, Nose Congestion, Mouth Pain, Mouth Swelling, Throat Pain, Throat Swelling, Other Respiratory: negative: Cough, Dry, Shortness of Breath, Hemoptysis, SOB with Excertion, Pleuritic Pain, Sputum, Wheezing Cardiovascular: negative: chest pain, palpitations, orthopnea, paroxysmal nocturnal dyspnea, edema, light headedness, other Gastrointestinal: negative: Nausea, Vomiting, Abdominal Pain, Diarrhea, Constipation, Melena, Hematochezia, Other Genitourinary: negative: Dysuria, Frequency, Incontinence, Hematuria, Retention , Other Musculoskeletal: negative: Neck Pain, Shoulder Pain, Arm Pain, Back Pain, Hand Pain, Leg Pain, Foot Pain, Other Skin: negative: Rash, Lesions, Amos, Bruising, Other - Medications/Allergies Allergies/Adverse Reactions: Allergies Allergy/AdvReac Type Severity Reaction Status Date / Time meperidine [From Demerol] Allergy Verified 10/30/18 04:02 Penicillins Allergy Verified 10/30/18 06:08 Medications: Current Medications Acetaminophen (Tylenol) 650 mg PO Q4H PRN PRN Reason: Headache/Fever/Mild Pain (1-3) Last Admin: 11/02/18 03:31 Dose: 650 mg Hydrocodone Bitart/Acetaminophen ([place] 5/325) 1 tab PO Q4H PRN PRN Reason: Moderate Pain (4-6) Last Admin: 11/02/18 09:00 Dose: 1 tab Artificial Tears (Tears Naturale) 2 drop EA EYE PRN PRN PRN Reason: Dry Eyes Bisacodyl (Dulcolax) 10 mg [place] DAILYPRN PRN PRN Reason: Constipation Calcium Carbonate (Tums) 1,000 mg PO Q4H PRN PRN Reason: Heartburn or Indigestion Enoxaparin Sodium (Lovenox) 40 mg SC 0900 [facility] Last Admin: 11/02/18 09:02 Dose: 40 mg Famotidine (Pepcid) 20 mg PO BID [facility] Last Admin: 11/02/18 09:02 Dose: 20 mg Guaifenesin (Robitussin Sf) 200 mg PO Q4H PRN PRN Reason: Cough Guaifenesin/Dextromethorphan (Robitussin Dm) 15 ml PO Q4H PRN PRN Reason: Cough Hydralazine HCl (Apresoline) 10 mg SLOW IVP Q4H PRN PRN Reason: SBP > 180 and HR < 70 Vancomycin HCl 2 gm/ Sodium (Chloride) 500 mls @ 250 mls/hr IVPB Q8H [facility] Last Admin: 11/02/18 09:02 Dose: 500 mls Ibuprofen (Motrin) 400 mg PO Q4H PRN PRN Reason: Fever > 101 Last Admin: 11/02/18 05:13 Dose: 400 mg Loperamide HCl (Imodium) 2 mg PO PRN PRN PRN Reason: Diarrhea/Loose Stools Loratadine (Claritin) 10 mg PO DAILYPRN PRN PRN Reason: Sinus Symptoms Mineral Oil/White Petrolatum (Eucerin Cream) 0 gm TOP BIDPRN PRN PRN Reason: Dry Skin Miscellaneous Medication (Pharmacy To Dose) 1 each IVPB ASDIR [facility] Morphine Sulfate (Morphine) 2 mg SLOW IVP Q2H PRN PRN Reason: Pain Last Admin: 11/02/18 09:54 Dose: 2 mg Ondansetron HCl (Zofran Odt) 4 mg PO Q6H PRN PRN Reason: Nausea/Vomiting Ondansetron HCl (Zofran) 4 mg IVP Q6H PRN PRN Reason: Nausea/Vomiting Senna/Docusate Sodium (Senokot S) 2 tab PO BID PRN PRN Reason: Constipation Sodium Chloride ([place] Nasal [place] 0.65%) 0 ml EA NARE QIDPRN PRN PRN Reason: Nasal Congestion Sodium Chloride (Flush - Normal Saline) 10 ml IVF Q12HR [facility] Last Admin: 11/02/18 09:03 Dose: 10 ml Sodium Chloride (Flush - Normal Saline) 10 ml IVF PRN PRN PRN Reason: Saline Flush Throat Lozenges (Cepastat Lozenges) 1 zion PO Q2H PRN PRN Reason: Sore Throat Zolpidem Tartrate (Ambien) 5 mg PO HSPRN PRN PRN Reason: Insomnia
[2018-11-03] MEDS: Morphine 4 MG/ML VIAL SLOW IVP PRN ×2 (00:09→10:48)
[2018-11-03] MEDS: Acetaminophen 325 MG TAB PO PRN ×2 (00:09→20:58)
[2018-11-03] MEDS: Senokot S 8.6-50 MG TAB PO PRN ×2 (00:09→20:57)
[2018-11-03] MEDS: Ibuprofen 200 MG TAB PO PRN ×3 (00:09→20:58)
[2018-11-03] MEDS: HYDROcodone/Acetaminophen 5/325 mg Tablet PO PRN (05:33)
[2018-11-03 10:00] LABS: Vancomycin, Trough 21.2 ug/mL
[2018-11-03] MEDS: Famotidine 20 MG TAB PO SCH ×2 (10:05→20:58)
[2018-11-03] MEDS: Enoxaparin Sodium 40 MG/0.4 ML SYRINGE SC SCH (10:06)
--- NOTE | 2018-11-03 10:47 | PDOC.PN ---
- Subjective Encounter Start Date: 11/03/18 Encounter Start Time: 08:00 Patient seen and examined. No new complaints. No overnight events - Objective Resuscitation Status - Order Detail: 10/30/18 07:52 Resuscitation Status Routine Resuscitation Status: FULL: Full Resuscitation MAR Reviewed: Yes Vital Signs & Weight: Vital Signs (12 hours) Temp Pulse Resp BP Pulse Ox 11/03/18 07:43 98.1 F 64 16 154/86 H 98 11/03/18 04:00 98 F 58 L 20 143/80 H 94 L 11/03/18 00:00 98.2 F 58 L 18 144/86 H 96 Weight Admit Weight 243 lb Weight 243 lb I&O: 11/02/18 11/03/18 11/04/18 06:59 06:59 06:59 Intake Total 2650 1270 Balance 2650 1270 Result Diagrams: 11/02/18 07:49 11/02/18 07:49 Phys Exam - Physical Examination Constitutional: NAD HEENT: PERRLA, moist MMs, sclera anicteric Neck: no JVD, supple Respiratory: no wheezing, no rales, no rhonchi Cardiovascular: RRR, no significant murmur, no rub Gastrointestinal: soft, non-tender, no distention, positive bowel sounds Musculoskeletal: no edema, pulses present scrotal wound with dressing Neurological: non-focal, normal sensation Lymphatic: no nodes Psychiatric: normal affect, A&O x 3 Skin: no rash, normal turgor Dx/Plan (1) Acute epididymitis Code(s): N45.1 - EPIDIDYMITIS Status: Acute (2) Cellulitis of scrotum Code(s): N49.2 - INFLAMMATORY DISORDERS OF SCROTUM Status: Acute (3) Sepsis Code(s): A41.9 - SEPSIS, UNSPECIFIED ORGANISM Status: Acute (4) Obesity (BMI 30.0-34.9) Code(s): E66.9 - OBESITY, UNSPECIFIED Status: Chronic - Plan cont current plan of care, continue antibiotics * he will need dressing daily * doxy on discharge * medication reviewed as below * symptomatic treatment. Review of Systems - Review of Systems ENT: negative: Ear Pain, Ear Discharge, Nose Pain, Nose Discharge, Nose Congestion, Mouth Pain, Mouth Swelling, Throat Pain, Throat Swelling, Other Respiratory: negative: Cough, Dry, Shortness of Breath, Hemoptysis, SOB with Excertion, Pleuritic Pain, Sputum, Wheezing Cardiovascular: negative: chest pain, palpitations, orthopnea, paroxysmal nocturnal dyspnea, edema, light headedness, other Gastrointestinal: negative: Nausea, Vomiting, Abdominal Pain, Diarrhea, Constipation, Melena, Hematochezia, Other Genitourinary: negative: Dysuria, Frequency, Incontinence, Hematuria, Retention , Other Musculoskeletal: negative: Neck Pain, Shoulder Pain, Arm Pain, Back Pain, Hand Pain, Leg Pain, Foot Pain, Other Skin: negative: Rash, Lesions, Amos, Bruising, Other - Medications/Allergies Allergies/Adverse Reactions: Allergies Allergy/AdvReac Type Severity Reaction Status Date / Time meperidine [From Demerol] Allergy Verified 10/30/18 04:02 Penicillins Allergy Verified 10/30/18 06:08 Medications: Current Medications Acetaminophen (Tylenol) 650 mg PO Q4H PRN PRN Reason: Headache/Fever/Mild Pain (1-3) Last Admin: 11/03/18 00:09 Dose: 650 mg Hydrocodone Bitart/Acetaminophen ([place] 5/325) 1 tab PO Q4H PRN PRN Reason: Moderate Pain (4-6) Last Admin: 11/03/18 05:33 Dose: 1 tab Artificial Tears (Tears Naturale) 2 drop EA EYE PRN PRN PRN Reason: Dry Eyes Bisacodyl (Dulcolax) 10 mg [place] DAILYPRN PRN PRN Reason: Constipation Calcium Carbonate (Tums) 1,000 mg PO Q4H PRN PRN Reason: Heartburn or Indigestion Enoxaparin Sodium (Lovenox) 40 mg SC 0900 [facility] Last Admin: 11/03/18 10:06 Dose: 40 mg Famotidine (Pepcid) 20 mg PO BID [facility] Last Admin: 11/03/18 10:05 Dose: 20 mg Guaifenesin (Robitussin Sf) 200 mg PO Q4H PRN PRN Reason: Cough Guaifenesin/Dextromethorphan (Robitussin Dm) 15 ml PO Q4H PRN PRN Reason: Cough Hydralazine HCl (Apresoline) 10 mg SLOW IVP Q4H PRN PRN Reason: SBP > 180 and HR < 70 Vancomycin HCl 2 gm/ Sodium (Chloride) 500 mls @ 250 mls/hr IVPB Q8H [facility] Last Admin: 11/03/18 10:06 Dose: 500 mls Ibuprofen (Motrin) 400 mg PO Q4H PRN PRN Reason: Fever > 101 Last Admin: 11/03/18 05:32 Dose: 400 mg Loperamide HCl (Imodium) 2 mg PO PRN PRN PRN Reason: Diarrhea/Loose Stools Loratadine (Claritin) 10 mg PO DAILYPRN PRN PRN Reason: Sinus Symptoms Mineral Oil/White Petrolatum (Eucerin Cream) 0 gm TOP BIDPRN PRN PRN Reason: Dry Skin Miscellaneous Medication (Pharmacy To Dose) 1 each IVPB ASDIR [facility] Morphine Sulfate (Morphine) 2 mg SLOW IVP Q2H PRN PRN Reason: Pain Last Admin: 11/03/18 00:09 Dose: 2 mg Ondansetron HCl (Zofran Odt) 4 mg PO Q6H PRN PRN Reason: Nausea/Vomiting Ondansetron HCl (Zofran) 4 mg IVP Q6H PRN PRN Reason: Nausea/Vomiting Senna/Docusate Sodium (Senokot S) 2 tab PO BID PRN PRN Reason: Constipation Last Admin: 11/03/18 00:09 Dose: 2 tab Sodium Chloride ([place] Nasal [place] 0.65%) 0 ml EA NARE QIDPRN PRN PRN Reason: Nasal Congestion Sodium Chloride (Flush - Normal Saline) 10 ml IVF Q12HR [facility] Last Admin: 11/03/18 10:06 Dose: 10 ml Sodium Chloride (Flush - Normal Saline) 10 ml IVF PRN PRN PRN Reason: Saline Flush Last Admin: 11/02/18 17:15 Dose: 10 ml Throat Lozenges (Cepastat Lozenges) 1 zion PO Q2H PRN PRN Reason: Sore Throat Zolpidem Tartrate (Ambien) 5 mg PO HSPRN PRN PRN Reason: Insomnia
--- NOTE | 2018-11-03 11:43 | DIS ---
DATE OF ADMISSION: 10/30/2018 DATE OF DISCHARGE: 11/03/2018 PRIMARY CARE PHYSICIAN: [facility] Call Admission. DISCHARGE DISPOSITION: [facility]. PRIMARY DISCHARGE DIAGNOSES: 1. Scrotal cellulitis with abscess, status post incision and drainage. 2. Acute epididymitis. 3. Sepsis due to scrotal cellulitis with abscess and acute epididymitis. SECONDARY DISCHARGE DIAGNOSIS: Obesity with body mass index 31. PRIMARY PROCEDURE/OPERATION: Incision and drainage was performed by Dr. Richard Brandon. RADIOLOGICAL INVESTIGATION: Testicular ultrasound confirmed of scrotal abscess. TEST RESULTS PENDING ON DISCHARGE: None. SIGNIFICANT LABORATORY DATA: WBC 10.1, hemoglobin 12.8, platelets 354. Sodium 141, potassium 3.8, BUN 5, creatinine 0.73. CRP 6.09. Urinalysis unremarkable. Culture from scrotal abscess grew MRSA. DISCHARGE MEDICATION: 1. Doxycycline 100 mg p.o. b.i.d. for 15 days. 2. Tylenol No. 3 one or two tablets q.6 hourly p.r.n. CONTRAINDICATION: None. CODE STATUS: Full code. INPATIENT GOLF COURSE ARCHITECT: Dr. Richard Brandon was consulted. TEST RESULTS PENDING ON DISCHARGE: None. ALLERGIES: MEPERIDINE AND PENICILLIN. DISCHARGE PLAN: Posthospital, the patient is discharged back to [facility]. Over there, the patient will need daily b.i.d. dressing and outpatient followup. HOSPITAL COURSE: A 28-year-old male with no significant medical problem, who was admitted by me on October 30, 2018. Please see my HPI for further details. The patient was having scrotal cellulitis and significant scrotal pain. He was initially evaluated at other emergency room and he was transferred to our hospital for further care. This patient was diagnosed with scrotal cellulitis. We did a testicular ultrasound, which confirmed abscess and epididymitis. We consulted Urology and they did I and D. While in hospital, he was given cefepime and vancomycin. Based on culture result, we changed to vancomycin only and on discharge, we changed to doxycycline. This patient needs twice daily wet-to-dry dressing. His pain is well controlled. He is tolerating p.o. well and hemodynamically stable. His CRP is improving. This patient will be discharged back to [facility]. All new medication prescription given. The patient is seen and examined at bedside today. Please see my progress note from today for further detail. Job ID: [id number]
[2018-11-03] MEDS: Vancomycin HCl 1.5 GM in Sodium Chloride 0.9% 250 ML 300 ML IVPB SCH (18:14)
[2018-11-03] MEDS ORDERED: Polyethylene Glycol 3350 17 GM Packet PO PRN (22:15)
[2018-11-04] MEDS: Vancomycin HCl 1.5 GM in Sodium Chloride 0.9% 250 ML 300 ML IVPB SCH ×3 (02:56→17:45)
[2018-11-04] MEDS: HYDROcodone/Acetaminophen 5/325 mg Tablet PO PRN ×3 (05:58→20:31)
[2018-11-04] MEDS: Morphine 4 MG/ML VIAL SLOW IVP PRN ×2 (06:00→16:09)
[2018-11-04] MEDS: Famotidine 20 MG TAB PO SCH ×2 (09:18→20:31)
[2018-11-04] MEDS: Enoxaparin Sodium 40 MG/0.4 ML SYRINGE SC SCH (09:18)
--- NOTE | 2018-11-04 09:41 | PDOC.PN ---
- Subjective Encounter Start Date: 11/04/18 Encounter Start Time: 07:50 Patient seen and examined. No new complaints. No overnight events - Objective Resuscitation Status - Order Detail: 10/30/18 07:52 Resuscitation Status Routine Resuscitation Status: FULL: Full Resuscitation MAR Reviewed: Yes Vital Signs & Weight: Vital Signs (12 hours) Temp Pulse Resp BP Pulse Ox 11/04/18 08:00 98.7 F 62 16 158/89 H 94 L 11/04/18 04:00 97.5 F L 50 L 15 155/100 H 94 L 11/04/18 00:00 98.7 F 70 19 143/81 H 94 L Weight Admit Weight 243 lb Weight 243 lb I&O: 11/03/18 11/04/18 11/05/18 06:59 06:59 06:59 Intake Total 1270 1220 Balance 1270 1220 Result Diagrams: 11/02/18 07:49 11/02/18 07:49 Phys Exam - Physical Examination Constitutional: NAD HEENT: PERRLA, moist MMs, sclera anicteric Neck: no JVD, supple Respiratory: no wheezing, no rales, no rhonchi Cardiovascular: RRR, no significant murmur, no rub Gastrointestinal: soft, non-tender, no distention, positive bowel sounds Musculoskeletal: no edema, pulses present Neurological: non-focal, normal sensation, moves all 4 limbs Lymphatic: no nodes Psychiatric: normal affect, A&O x 3 Skin: no rash, normal turgor Dx/Plan (1) Acute epididymitis Code(s): N45.1 - EPIDIDYMITIS Status: Acute (2) Cellulitis of scrotum Code(s): N49.2 - INFLAMMATORY DISORDERS OF SCROTUM Status: Acute (3) Sepsis Code(s): A41.9 - SEPSIS, UNSPECIFIED ORGANISM Status: Acute (4) Obesity (BMI 30.0-34.9) Code(s): E66.9 - OBESITY, UNSPECIFIED Status: Chronic - Plan cont current plan of care, continue antibiotics, 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 Review of Systems - Review of Systems ENT: negative: Ear Pain, Ear Discharge, Nose Pain, Nose Discharge, Nose Congestion, Mouth Pain, Mouth Swelling, Throat Pain, Throat Swelling, Other Respiratory: negative: Cough, Dry, Shortness of Breath, Hemoptysis, SOB with Excertion, Pleuritic Pain, Sputum, Wheezing Cardiovascular: negative: chest pain, palpitations, orthopnea, paroxysmal nocturnal dyspnea, edema, light headedness, other Gastrointestinal: negative: Nausea, Vomiting, Abdominal Pain, Diarrhea, Constipation, Melena, Hematochezia, Other Genitourinary: negative: Dysuria, Frequency, Incontinence, Hematuria, Retention , Other Musculoskeletal: negative: Neck Pain, Shoulder Pain, Arm Pain, Back Pain, Hand Pain, Leg Pain, Foot Pain, Other Skin: negative: Rash, Lesions, Amos, Bruising, Other - Medications/Allergies Allergies/Adverse Reactions: Allergies Allergy/AdvReac Type Severity Reaction Status Date / Time meperidine [From Demerol] Allergy Verified 10/30/18 04:02 Penicillins Allergy Verified 10/30/18 06:08 Medications: Current Medications Acetaminophen (Tylenol) 650 mg PO Q4H PRN PRN Reason: Headache/Fever/Mild Pain (1-3) Last Admin: 11/03/18 20:58 Dose: 650 mg Hydrocodone Bitart/Acetaminophen ([place] 5/325) 1 tab PO Q4H PRN PRN Reason: Moderate Pain (4-6) Last Admin: 11/04/18 05:58 Dose: 1 tab Artificial Tears (Tears Naturale) 2 drop EA EYE PRN PRN PRN Reason: Dry Eyes Bisacodyl (Dulcolax) 10 mg [place] DAILYPRN PRN PRN Reason: Constipation Calcium Carbonate (Tums) 1,000 mg PO Q4H PRN PRN Reason: Heartburn or Indigestion Enoxaparin Sodium (Lovenox) 40 mg SC 0900 [facility] Last Admin: 11/04/18 09:18 Dose: 40 mg Famotidine (Pepcid) 20 mg PO BID [facility] Last Admin: 11/04/18 09:18 Dose: 20 mg Guaifenesin (Robitussin Sf) 200 mg PO Q4H PRN PRN Reason: Cough Guaifenesin/Dextromethorphan (Robitussin Dm) 15 ml PO Q4H PRN PRN Reason: Cough Hydralazine HCl (Apresoline) 10 mg SLOW IVP Q4H PRN PRN Reason: SBP > 180 and HR < 70 Vancomycin HCl 1.5 gm/ Sodium (Chloride) 300 mls @ 150 mls/hr IVPB 0200,1000, 1800 [facility] Last Admin: 11/04/18 09:23 Dose: 300 mls Ibuprofen (Motrin) 400 mg PO Q4H PRN PRN Reason: Fever > 101 Last Admin: 11/03/18 20:58 Dose: 400 mg Loperamide HCl (Imodium) 2 mg PO PRN PRN PRN Reason: Diarrhea/Loose Stools Loratadine (Claritin) 10 mg PO DAILYPRN PRN PRN Reason: Sinus Symptoms Mineral Oil/White Petrolatum (Eucerin Cream) 0 gm TOP BIDPRN PRN PRN Reason: Dry Skin Miscellaneous Medication (Pharmacy To Dose) 1 each IVPB ASDIR [facility] Morphine Sulfate (Morphine) 2 mg SLOW IVP Q2H PRN PRN Reason: Pain Last Admin: 11/04/18 06:00 Dose: 2 mg Ondansetron HCl (Zofran Odt) 4 mg PO Q6H PRN PRN Reason: Nausea/Vomiting Ondansetron HCl (Zofran) 4 mg IVP Q6H PRN PRN Reason: Nausea/Vomiting Polyethylene Glycol (Miralax) 17 gm PO DAILYPRN PRN PRN Reason: Constipation Last Admin: 11/04/18 06:00 Dose: 17 gm Senna/Docusate Sodium (Senokot S) 2 tab PO BID PRN PRN Reason: Constipation Last Admin: 11/03/18 20:57 Dose: 2 tab Sodium Chloride ([place] Nasal [place] 0.65%) 0 ml EA NARE QIDPRN PRN PRN Reason: Nasal Congestion Sodium Chloride (Flush - Normal Saline) 10 ml IVF Q12HR [facility] Last Admin: 11/04/18 09:19 Dose: 10 ml Sodium Chloride (Flush - Normal Saline) 10 ml IVF PRN PRN PRN Reason: Saline Flush Last Admin: 11/03/18 18:14 Dose: 10 ml Throat Lozenges (Cepastat Lozenges) 1 zion PO Q2H PRN PRN Reason: Sore Throat Zolpidem Tartrate (Ambien) 5 mg PO HSPRN PRN PRN Reason: Insomnia
--- NOTE | 2018-11-04 12:39 | DIS ---
DATE OF ADMISSION: 10/30/2018 DATE OF DISCHARGE: 11/04/2018 ADDENDUM: Please see my discharge summary dictated yesterday. There is no change in any part of my dictation. The patient stayed overnight for arrangement at [facility] for antibiotic and wound care. Job ID: [id number]
[2018-11-04 16:30] VITALS: BP 146/82; TEMP 98.7
[2018-11-04 17:51] LABS: Vancomycin, Trough 18.4 ug/mL
== END 2018-11-04 20:40 | DRG 872 ==
LOC: EEVIPCON 02:55 → ERS 02:55 → SJJU 03:41 → SURG A 10-31 08:15
PROVIDERS: ADMIT Internal Medicine; ATTEND Internal Medicine
PROC: 0V950ZX Drainage of Scrotum, Open Approach, Diagnostic (ICD-10-PCS; principal; 2018-10-30)
DX: A41.9 Sepsis, unspecified organism (principal); N49.2 Inflammatory disorders of scrotum; Z88.0 Allergy status to penicillin; Z88.8 Allergy status to other drugs, medicaments and biological substances; E66.9 Obesity, unspecified; Z68.31 Body mass index [BMI] 31.0-31.9, adult
CPT/HCPCS: 36415; 76870; 80048; 80053; 80202; 81003; 83605; 85025; 86140; 87070; 87077; 87186; 87205; 96365; 96375; J0131; J0692; J1100; J1650; J1885; J2001; J2270; J2405; J2704; J3010; J3370; J7050; S0028